=== PATIENT | male | born 1950 | race Caucasian/White ===

== ENCOUNTER 2017-01-12 14:51 | Outpatient (CLI) | payer MEDICARE, OTHER | END 2017-01-12 14:52 | disposition home or self-care (01) | DX: Z13.6 Encounter for screening for cardiovascular disorders (principal); I10 Essential (primary) hypertension ==

== ENCOUNTER 2017-08-27 11:37 | Outpatient (CLI) | payer MEDICARE, OTHER ==
--- NOTE | 2017-08-27 20:29 | Ultrasound Report ---
EXAM: BILATERAL LOWER EXTREMITY ARTERIAL DOPPLER ULTRASOUND EXAM DATE: 08/27/2017 01:21 PM. CLINICAL HISTORY: Neuropathy. COMPARISON: None. TECHNIQUE: Real-time sonographic vascular imaging was performed by the receiving lead, utilizing color-f low, Doppler flow, and spectral analysis. Multiple players club representative static images were saved for review . FINDINGS: RIGHT LEG: GENERATING STATION MECHANIC: PSV 140 cm/sec. Triphasic waveform. PSFA: PSV 124 cm/sec. Triphasic waveform. MSFA: PSV 108 cm/sec. Triphasic waveform. DSFA: PSV 180 cm/sec. Triphasic waveform. PFA: PSV 154 cm/sec. Triphasic waveform. POP: PSV 104 cm/sec. Triphasic waveform. MARINO: PSV 34 cm/sec. Biphasic waveform. MRI CT TECH: PSV 61 cm/sec. Triphasic waveform. PER: PSV 51 cm/sec. Biphasic waveform. DPA: PSV 73 cm/sec. Triphasic waveform. LEFT LEG: GENERATING STATION MECHANIC: PSV 155 cm/sec. Triphasic waveform. PSFA: PSV 98 cm/sec. Triphasic waveform. MSFA: PSV 67 cm/sec. Triphasic waveform. DSFA: PSV 112 cm/sec. Triphasic waveform. PFA: PSV 86 cm/sec. Triphasic waveform. POP: PSV 84 cm/sec. Triphasic waveform. MARINO: PSV 68 cm/sec. Triphasic waveform. MRI CT TECH: PSV 77 cm/sec. Triphasic waveform. PER: PSV 66 cm/sec. Biphasic waveform. DPA: PSV 77 cm/sec. Triphasic waveform. IMPRESSION: 1. There is scattered atheromatous calcification within the bilateral femoral arteries. 2. No evidence of occlusion or high-grade stenosis. [facility] Referring Provider Line: [phone] SITE ID: [id number]
== END 2017-08-27 11:38 | disposition home or self-care (01) ==
LOC: DI 11:37
PROVIDERS: ATTEND Internal Medicine
DX: I70.203 Unspecified atherosclerosis of native arteries of extremities, bilateral legs (principal)
CPT/HCPCS: 93925

== ENCOUNTER 2017-09-22 11:38 | Outpatient (CLI) | payer MEDICARE, OTHER ==
--- NOTE | 2017-09-22 20:34 | CT Report ---
DATE OF SERVICE: 09/22/2017 CT BRAIN WITHOUT CONTRAST: 09/22/2017 CLINICAL INDICATION: Neuropathy, pain in legs, toe numbness. TECHNIQUE: Axial CT images of the brain were obtained without intravenous contrast. No previous CT is available for comparison. In accordance with CT protocol optimization, one or more of the following dose reduction techniques w ere utilized for this exam: Automated exposure control, adjustment of mA and/or KV based on patient size , or use of iterative reconstructive technique. The ventricles and sulci demonstrate mild symmetric enlargement, compatible with atrophy. The basila r cisterns are patent. There is no evidence of hemorrhage, mass effect, or midline shift. The visuali zed orbital contents are unremarkable. There is left worse than right chronic maxillary sinus disease pr esent. IMPRESSION: Chronic sinus disease. Mild atrophy. TD: 09/22/2017 21:33
== END 2017-09-22 11:39 | disposition home or self-care (01) ==
LOC: DI 11:38
PROVIDERS: ATTEND Internal Medicine
DX: G90.09 Other idiopathic peripheral autonomic neuropathy (principal); G31.9 Degenerative disease of nervous system, unspecified; J32.9 Chronic sinusitis, unspecified
CPT/HCPCS: 70450

== ENCOUNTER 2017-10-16 14:21 | Outpatient (CLI) | payer MEDICARE, OTHER | END 2017-10-16 14:22 | disposition home or self-care (01) | LOC: LAB.R 14:21 | PROVIDERS: ATTEND Surgery | DX: N39.0 Urinary tract infection, site not specified (principal); R19.7 Diarrhea, unspecified | CPT/HCPCS: 81001; 82270; 83630; 87045; 87046; 87086; 87177; 87209; 87493 ==

== ENCOUNTER 2017-10-23 13:06 | Outpatient (CLI) | payer MEDICARE, OTHER ==
[2017-10-23] MEDS ORDERED: IOPAMIDOL-300 50 ML VIAL ONE (14:14)
[2017-10-23] MEDS ORDERED: IOPAMIDOL-300 100 ML VIAL ONE (14:14)
[2017-10-23] MEDS ORDERED: IOPAMIDOL-300 50 ML VIAL PO ONE (16:04)
[2017-10-23] MEDS ORDERED: IOPAMIDOL-300 100 ML VIAL IVP ONE (16:05)
--- NOTE | 2017-10-25 23:56 | CT Report ---
EXAM: CT ABDOMEN AND PELVIS EXAM DATE: 10/23/2017 04:00 PM. CLINICAL HISTORY: Patient has a history of Tita's pouch. 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 Rec ent urinary tract infections and leakage of liquid bowel contents into the urinary tract. COMPARISONS: 05/14/2015, 10/26/2014. TECHNIQUE: Routine helical CT imaging was performed through the abdomen and pelvis. IV contrast: 100 mL Isovue 300. Enteric contrast: Yes. Reconstructions: Coronal and sagittal. In accordance with CT protocol optimization, one or more of the following dose reduction techniques w ere utilized for this exam: automated exposure control, adjustment of mA and/or KV based on patient s ize, or use of iterative reconstructive technique. FINDINGS: Lung Bases: Emphysema. Liver: Moderately fatty. Stable atrophic left liver. No suspicious masses. Gallbladder/Bile Ducts: Cholelithiasis, otherwise unremarkable. Spleen: Unremarkable. Pancreas: Unremarkable. Adrenal Glands: Unremarkable. Kidneys: Solitary large left kidney, likely compensatorily hypertrophied. Tiny nonobstructive left re nal stone. No suspicious masses or hydronephrosis. Peritoneal Cavity/Bowel: Patient is status post partial colectomy and left lower quadrant colostomy f ormation. No bowel obstruction or inflammatory process seen. There is evidence of a patent fistula tr act between bowel and the left dome of the urinary bladder, axial images 59 through 61 and coronal im ages 30 through 30 where there appear to be tethered cluster of bowel loops involving the rectal pouc h, small bowel, and cecum. There is a passage of enteric contrast into the urinary bladder and rectal pouch. Pelvic Organs: Please see above for the enterovesicular fistula. There is a large 5 cm chronic right posterior bladder diverticulum. There is a new approximately 2 x 1 x 1 cm collection within the pros méndez gland on axial image 72. Vasculature: Chronic saccular aneurysm off the left aspect of the aorta on image 36 without significa nt change. At this level, the aorta measures 38 mm transverse and 20 mm AP. No acute vascular abnorma lity seen. Moderate atherosclerotic disease. Bones: No significant abnormality. Other: None. IMPRESSION: 1. 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 The small fistu la is from a tethered cluster of bowel loops which have fistulized together involving the cecum, holly cent small bowel, and rectal pouch. Evidence of administered enteric contrast within the urine of the bladder and within the rectal pouch, consistent with patent fistulas. 2. New approximately 2 x 1 x 1 cm collection within the prostate gland could be inflammatory/early ab scess. Correlation with clinical exam suggested. 3. Fatty liver. 4. Cholelithiasis. 5. Tiny nonobstructing left renal stone. Absent right Kidney. 6. Emphysema. 7. Chronic small saccular aneurysm off the lower abdominal aorta. [facility] Referring Provider Line: [phone] SITE ID: [id number]
== END 2017-10-23 13:07 | disposition home or self-care (01) ==
LOC: LAB 13:06 → DI 13:07
PROVIDERS: ATTEND Surgery
DX: N32.1 Vesicointestinal fistula (principal); N42.89 Other specified disorders of prostate; K76.0 Fatty (change of) liver, not elsewhere classified; N20.0 Calculus of kidney; J43.9 Emphysema, unspecified; I71.4 Abdominal aortic aneurysm, without rupture; Z90.5 Acquired absence of kidney
CPT/HCPCS: 36415; 74177; 82565; Q9967

== ENCOUNTER 2017-11-06 08:32 | Day surgery (SDC) | payer MEDICARE, OTHER ==
[2017-11-06] MEDS ORDERED: LACTATED RINGERS 1,000 ML IV ONE (08:39)
[2017-11-06] MEDS ORDERED: GLYCOPYRROLATE 1 MG/5 ML VIAL IVP ONE (09:50)
[2017-11-06] MEDS ORDERED: MIDAZOLAM 2 MG/2 ML VIAL IVP ONE (09:50)
[2017-11-06] MEDS ORDERED: PROPOFOL 200 MG/20 ML VIAL IVP ONE (09:50)
[2017-11-06] MEDS ORDERED: KETAMINE 500 MG/10 ML VIAL IVP ONE (09:50)
[2017-11-06 12:41] VITALS: BP 128/77
== END 2017-11-06 08:33 | disposition home or self-care (01) ==
LOC: SDS 08:32
PROVIDERS: ATTEND Surgery
PROC: 0DBE8ZX Excision of Large Intestine, Via Natural or Artificial Opening Endoscopic, Diagnostic (ICD-10-PCS; 2017-11-06)
PROC: 0DBM8ZX Excision of Descending Colon, Via Natural or Artificial Opening Endoscopic, Diagnostic (ICD-10-PCS; principal; 2017-11-06 09:45)
DX: D12.4 Benign neoplasm of descending colon (principal); R19.7 Diarrhea, unspecified
CPT/HCPCS: 45380; 45384; J7120

== ENCOUNTER 2017-12-14 10:26 | Outpatient (CLI) | payer MEDICARE, OTHER | END 2017-12-14 10:27 | disposition critical access hospital (66) | LOC: EMS 10:26 | PROVIDERS: ATTEND Surgery | DX: R53.1 Weakness (principal); R50.9 Fever, unspecified | CPT/HCPCS: A0425; A0427 ==

== ENCOUNTER 2017-12-14 10:48 | Inpatient (IN) | payer MEDICARE, OTHER ==
[2017-12-14] MEDS ORDERED: SODIUM CHLORIDE 0.9% 1,000 ML IV ONE ×2 (10:59→15:44)
[2017-12-14] MEDS ORDERED: ACETAMINOPHEN 325 MG TABLET PO STA (11:00)
--- NOTE | 2017-12-14 11:04 | ED Physician Documentation ---
History of Present Illness - Stated complaint Stated Complaint: WEAKNESS - Chief complaint Chief Complaint: Fever - Additonal information Additional information: hx from pt and EMS and [facility] 67 male hx HTN a fib recurrent UTI colostomy enterovesicular fistula dx 10/23/17 released from [facility] Thursday 3 days ago -had c diff dehydration lyte and RUIZ malnourished dc on oral vanco states his son called 911 today 2/2 fever and profound weakness EMS brought to [facility] pt denies [employer] CP AP no cough no abd pain states he is urinating he is shaking but states that is chronic Review of Systems Constitutional: reports: Fever, Chills Throat: denies: Sore throat Cardiac: denies: Chest pain / pressure Respiratory: denies: Dyspnea, Cough GI: reports: Diarrhea (has colostomy). denies: Abdominal Pain Skin: denies: Rash Neurologic: reports: Generalized weakness Immunocompromised: denies: Immunocompromised PD PAST MEDICAL HISTORY - Past Medical History Cardiovascular: Hypertension, Atrial fibrillation Respiratory: None Neuro: None Endocrine/Autoimmune: None GI: C.difficile, Chronic diarrhea, Diverticulitis, Crohn's disease, Other : Benign prostate hypertrophy, Kidney stones, Other HEENT: Other Psych: Depression, Anxiety Musculoskeletal: Osteoarthritis, Gout, Chronic back pain Derm: None - Past Surgical History Past Surgical History: Yes General: Bowel surgery, Colonoscopy, Other Ortho: Other - Present Medications Home Medications: Ambulatory Orders Medication Instructions Recorded Confirmed Felodipine [Felodipine ER] 10 mg PO DAILY 10/25/14 12/14/17 Metoprolol Succinate [Toprol Xl] 50 mg PO DAILY 04/12/15 12/14/17 Amiodarone HCl [Amiodarone HCl] 200 mg PO DAILY 12/14/17 12/14/17 Losartan Potassium [Losartan 50 mg PO DAILY 12/14/17 12/14/17 Potassium] Vancomycin HCl [Vancomycin HCl] 125 mg PO QID 12/14/17 12/14/17 - Allergies Allergies/Adverse Reactions: Allergies Allergy/AdvReac Type Severity Reaction Status Date / Time erythromycin base Allergy Intermediate Rash Verified 12/14/17 10:56 - Social History Does the pt smoke?: Yes Smoking Status: Current every day smoker Does the pt drink ETOH?: Yes Does the pt have substance abuse?: No PD ED PE NORMAL - Vitals Vital signs reviewed: Yes - Neck Neck: Supple, no meningeal sign - Cardiac Cardiac: RRR - Respiratory Respiratory: No respiratory distress, Clear bilaterally - Abdomen Abdomen: Soft, Non tender, Other (prior surgical scars, L colostomy, soft, NT) - Extremities Extremities: No deformity - Neuro Neuro: Alert and oriented X 3 Results - Vitals Vitals: Vital Signs - 24 hr 12/14/17 12/14/17 12/14/17 10:51 11:04 13:35 Temperature 38.3 C H Heart Rate 102 H 92 96 Respiratory 20 18 18 Rate Blood Pressure 216/150 H 120/59 L 125/63 O2 Saturation 97 97 98 12/14/17 12/14/17 12/14/17 14:00 15:00 16:06 Temperature Heart Rate 88 87 88 Respiratory 16 16 16 Rate Blood Pressure 125/60 123/61 119/59 L O2 Saturation 96 97 97 Oxygen O2 Source [With Activity] Room air O2 Source Room air - Labs Labs: Laboratory Tests 12/14/17 12/14/17 12/14/17 11:10 11:10 11:10 WBC 12.2 H RBC 3.79 L Hgb 13.3 L Hct 39.9 L MCV 105.4 H MCH 35.1 H MCHC 33.3 RDW 13.0 Plt Count 146 MPV 7.3 L Neut # 10.7 H Lymph # 0.3 L Campbell # 1.2 H Eos # 0.0 Baso # 0.0 Absolute Nucleated RBC 0.01 Nucleated RBC % 0.0 Sodium 132 L Potassium 4.3 Chloride 110 Carbon Dioxide 15 L Anion Gap 7.0 BUN 24 H Creatinine 1.2 Estimated GFR (MDRD) 60 L Glucose 137 H Lactic Acid 1.8 Calcium 9.4 Total Bilirubin 0.8 AST 17 ALT 12 Alkaline Phosphatase 90 Total Protein 7.1 Albumin 3.2 Globulin 3.9 Albumin/Globulin Ratio 0.8 L Lipase 22 Urine Color Urine Clarity Urine pH Ur Specific [place] Urine Protein Urine Glucose (UA) Urine Ketones Urine Occult Blood Urine Nitrite Urine Bilirubin Urine Urobilinogen Ur Leukocyte Esterase Urine RBC Urine WBC Ur Squamous Epith Cells Urine Bacteria Ur Microscopic Review Urine Culture Comments 12/14/17 14:45 WBC RBC Hgb Hct MCV MCH MCHC RDW Plt Count MPV Neut # Lymph # Campbell # Eos # Baso # Absolute Nucleated RBC Nucleated RBC % Sodium Potassium Chloride Carbon Dioxide Anion Gap BUN Creatinine Estimated GFR (MDRD) Glucose Lactic Acid Calcium Total Bilirubin AST ALT Alkaline Phosphatase Total Protein Albumin Globulin Albumin/Globulin Ratio Lipase Urine Color YELLOW Urine Clarity TURBID Urine pH 6.0 Ur Specific [place] 1.010 Urine Protein TRACE Urine Glucose (UA) NEGATIVE Urine Ketones NEGATIVE Urine Occult Blood MODERATE H Urine Nitrite NEGATIVE Urine Bilirubin SMALL H Urine Urobilinogen 0.2 (NORMAL) Ur Leukocyte Esterase SMALL H Urine RBC 11-25 H Urine WBC 6-10 H Ur Squamous Epith Cells FEW Squamous Urine Bacteria Many H Ur Microscopic Review INDICATED Urine Culture Comments INDICATED PD MEDICAL DECISION MAKING - ED course ED course: received records from [facility] pt with hx HTN a fib on amiodarone, recurrent UTI and enterovesicular fistula dx by CT 10/23/17was admitted for acute on chronic diarrhea, acute c diff, failure to thrive, malnutrition, lyte imbalances, RUIZ 2/2 GI losses) EtOH withdrawal, chronic stable enterovesicular fistula (surgical consult not pursed last week 2/2 malnutrition and known active C diff) plan was to dc to SNF, perhaps TPN, pt got better was ambulatory, dc on toprol XL 50 mg q24h plendil 10 mg q 24 hr micradis 80 mg q 244hr losartan 50 mg qpm apap vanco 125mg PO qid valium 5 mg q6h PRN vicodin 7.5/325 was dced now he is worse dehydrated again and now UTI with fever 2/2 fistula - can tx with ab but will worsen the c diff and unlikely to clear the UTI f there is a fistula will admit -as pt is not a candidate for surgery by urology at this time feel could be admitted to [facility] will discuss ab with admitting doc spoke to hospitalist at 1625 late in ED stay after seen by hospitalist son expressed interest in transferring to a [address] [place] [address] Jaden - I went to speak to him and advised i could try to accommodate that - asked why and he was hoping to see a diff urologist - I explained that if the previous urologist felt he was to weakned and malnourished and that it was not safe to operate on his fistula while actively suffering from c -diff, that it was probably not safe - he is concerned pt will never get better while he continues to have the fistula (gets UTIs from the fistula, txed with ab, which cause c diff etc) - after I spoke to pt and family they decided to stay at [facility] after all Departure - Departure Disposition: [facility] DC/Xfer Clinical Impression: C. difficile colitis, Dehydration, Weakness UTI (urinary tract infection) Qualifiers: Urinary tract infection type: site unspecified Hematuria presence: with hematuria Qualified Code(s): N39.0 - Urinary tract infection, site not specified Condition: Fair Discharge Date/Time: 12/14/17 18:21
[2017-12-14 11:22] LABS: BASOPHILS % (AUTO) 0.3 %; HGB - HEMOGLOBIN 13.3 g/dL (14.0-18.0); LYMPHOCYTES # (AUTO) 0.3 10^3/uL (1.5-3.5); LYMPHOCYTES % (AUTO) 2.1 %; MEAN CORPUSCULAR HEMOGLOBIN 35.1 pg (27.0-31.0); MEAN CORPUSCULAR HGB CONC 33.3 g/dL (32.0-36.0); MEAN CORPUSCULAR VOLUME 105.4 fL (80.0-94.0); MEAN PLATELET VOLUME 7.3 fL (7.4-11.4); MONOCYTES # (AUTO) 1.2 10^3/uL (0.0-1.0); MONOCYTES % (AUTO) 9.6 %; NEUTROPHILS # (AUTO) 10.7 10^3/uL (1.5-6.6); PLT - PLATELET COUNT 146 10^3/uL (130-450); RED BLOOD COUNT 3.79 10^6/uL (4.70-6.10); WHITE BLOOD COUNT 12.2 x10^3/uL (4.8-10.8)
[2017-12-14 11:33] LABS: ALBUMIN 3.2 g/dL (3.2-5.5); ALBUMIN/GLOBULIN RATIO 0.8 (1.0-2.2); BILIRUBIN,TOTAL 0.8 mg/dL (0.2-1.0); CALCIUM 9.4 mg/dL (8.5-10.3); CREATININE 1.2 mg/dL (0.6-1.2); TOTAL PROTEIN 7.1 g/dL (6.7-8.2)
[2017-12-14 14:52] LABS: GLUCOSE, URINE (UA) NEGATIVE (NEGATIVE); KETONES,URINE (UA) NEGATIVE (NEGATIVE); LEUKOCYTE ESTERASE, URINE SMALL (NEGATIVE); NITRITE,URINE NEGATIVE (NEGATIVE); OCCULT BLOOD,URINE MODERATE (NEGATIVE); PROTEIN,URINE TRACE mg/dL (NEGATIVE); UROBILINOGEN,URINE 0.2 (NORMAL) E.U./dL (NORMAL)
[2017-12-14 14:53] LABS: CLARITY,URINE TURBID (CLEAR)
[2017-12-14 14:57] LABS: BILIRUBIN,URINE SMALL (NEGATIVE); ICTOTEST,URINE POSITIVE
[2017-12-14 15:04] LABS: SQUAMOUS EPITHELIAL CELL,UR FEW Squamous (<= Few)
[2017-12-14 15:05] LABS: BACTERIA,URINE Many /HPF (None Seen)
[2017-12-14] MEDS ORDERED: D5.45NS W/20 MEQ KCL 1,000 ML IV STA (15:44)
[2017-12-14] MEDS ORDERED: VANCOMYCIN 125 MG CAPSULE PO STA (15:44)
[2017-12-14] MEDS ORDERED: ACETAMINOPHEN 325 MG TABLET PO PRN (17:20)
[2017-12-14] MEDS ORDERED: ZOLPIDEM 5 MG TABLET PO PRN (17:20)
[2017-12-14] MEDS ORDERED: ONDANSETRON 4 MG/2 ML VIAL IVP PRN (17:20)
[2017-12-14] MEDS ORDERED: D5.45NS W/20 MEQ KCL 1,000 ML IV SCH (18:00)
[2017-12-14] MEDS ORDERED: VANCOMYCIN 125 MG CAPSULE PO SCH (18:00)
[2017-12-14] MEDS ORDERED: D5NS W/20 MEQ KCL 1,000 ML IV SCH (18:00)
--- NOTE | 2017-12-14 18:12 | HISTORY & PHYSICAL EXAMINATION ---
Chief Complaint - Chief Complaint Chief Complaint: fever and profound weakness History of Present Illness - Admitted From Admitted From:: ER - History Obtained From History obtained from: pt and pt's family - History of Present Illness HPI Comment/Other: Mr. Eckert is 67-year-old male with a PMH significant for HTN, recurrent UTI, Afib in Amiodarone, C.Diff colitis on PO Vancomycin, colostomy, enterovesicular fistula, who present ER complaints of fever and profound weakness. Pt was discharged from [facility] three days ago with PO Vancomycin for C.Diff colitis. In 2014, pt underwent a colonic resection and descending colostomy ( Tita) for perforated diverticulitis. Three months later pt developed SBO and underwent Laparoscopy which revealed small bowel vulvous. CT scan on 2017 shows left dome enterovesical fistula, biopsies showed negative for Crohn' s disease. Pt has seen Dr. Mims as out-pt and planned to attempt surgery for the fistula. The surgeon was unable to proceed with surgery due to pt's nutritional decline at that time. Pt's son call 911 today for pt's fever and profound weakness. Pt state he can walk yesterday but he can not do anything today. Pt report he did have stool passed through his colostomy bag today and felt some abdominal pain as well. Pt denies chest pain, shortness of breath, headache. Lab test today shows, WBC 12.2, Na 132, BUN 24, Creatinine 1.2, and UA reveals UTI. History - Past Medical History Cardiovascular: reports: Hypertension, Atrial fibrillation Respiratory: reports: None Neuro: reports: None Endocrine/Autoimmune: reports: None GI: reports: C.difficile, Chronic diarrhea, Diverticulitis, Crohn's disease, Other : reports: Benign prostate hypertrophy, Kidney stones, Other HEENT: reports: Other Psych: reports: Depression, Anxiety Musculoskeletal: reports: Osteoarthritis, Gout, Chronic back pain Derm: reports: None MRSA Hx?: No - Past Surgical History General: reports: Bowel surgery, Colonoscopy, Other Ortho: reports: Other - Family & Social History Family History: Mother: (pt is adopted. He did not know his parents at all, pt also does not know anything about his siblings), Father: Family History Comment/Other: pt with his is living at [place]. Pt had one son Living arrangement: At home Living Situation: With family - Substance History Use: Uses substance without health or social issues: Alcohol - POLST POLST Status: DNR Meds/Allgy - Home Medications Home Medications: Ambulatory Orders Medication Instructions Recorded Confirmed Felodipine [Felodipine ER] 10 mg PO DAILY 10/25/14 12/14/17 Metoprolol Succinate [Toprol Xl] 50 mg PO DAILY 04/12/15 12/14/17 Amiodarone HCl [Amiodarone HCl] 200 mg PO DAILY 12/14/17 12/14/17 Losartan Potassium [Losartan 50 mg PO DAILY 12/14/17 12/14/17 Potassium] Vancomycin HCl [Vancomycin HCl] 125 mg PO QID 12/14/17 12/14/17 - Allergies Allergies/Adverse Reactions: Allergies Allergy/AdvReac Type Severity Reaction Status Date / Time erythromycin base Allergy Intermediate Rash Verified 12/14/17 10:56 Review of Systems - Constitutional Constitutional: reports: Fatigue, Fever, Chills, Weakness, Poor appetite, Weight loss. denies: Malaise, Diaphoresis, Night sweats, Weight gain - Eyes Eyes: denies: Pain, Irritation, Amaurosis, Blurred vision, Spots in vision, Field loss, Vision loss, Dipolpia - Ears, Nose & Throat Ears, Nose & Throat: denies: Ear pain, Hearing loss, Hearing aids, Tinnitus, Vertigo, Nasal pain, Nasal discharge, Nosebleeds, Nasal congestion, Sore throat , Mouth lesions, Bleeding gums - Cardiovascular Cariovascular: denies: Irregular heart rate, Palpitations, Chest pain, Edema, Lightheadedness, Syncope, Exertional dyspnea, Decr. exercise tolerance - Respiratory Respiratory: reports: Cough, Sputum production. denies: Wheezing, Snoring, Hemoptysis, Orthopnea, SOB at rest, SOB with exertion - Gastrointestinal Gastrointestinal: reports: Abdominal pain, Diarrhea, Poor appetite. denies: Constipation, Change in bowel habits, Rectal bleeding, Black stools, Bloody stools, Nausea, Vomiting, Bile emesis, Juan blood emesis, Coffee grounds emesis - Genitourinary Genitourinary: reports: Frequency, Urgency. denies: Dysuria, Hematuria, Incontinence, Flank pain - Musculoskeletal Musculoskeletal: denies: Muscle pain, Back pain, Muscle aches, Stiffness, Limited range of motion, Muscle weakness, Gout, Joint pain - Integumentary Integumentary: denies: Rash, Pruritis, Lesions, Dryness, Pigment changes - Neurological Neurological: reports: General weakness. denies: Focal weakness, Headache, Dizziness, Numbness, Pre-existing deficit, Abnormal gait, Seizures, Incoordination, Slurred speech - Psychiatric Psychiatric: denies: Depression, Anxiety, Suicidal, Delusions, Hallucinations, Homicidal - Endocrine Endocrine: denies: Polyuria, Polydypsia, Polyphagia, Intolerance to cold, Intolerance to heat - Hematologic/Lymphatic Hematologic/Lymphatic: reports: Recurrent infections. denies: Anemia, Lymphadenopathy, Bleeding tendencies Exam - Vital Signs Reviewed Vital Signs: Yes - Physical Exam General Appearance: positive: Alert, Mild distress. negative: Lethargic Eyes Bilateral: positive: Normal inspection, PERRL, No lid inflammation, Conjunctivae nml ENT: positive: ENT inspection nml, Pharynx nml, No signs of dehydration. negative: Purulent nasal drainage, Pharyngeal erythema, Oral lesions Neck: positive: Nml inspection, Thyroid nml, No JVD, Trachea midline. negative : Thyromegaly, Lymphadenopathy (R), Lymphadenopathy (L), Stiff neck, Carotid bruit, Swelling/bruising, Tracheal deviation Respiratory: positive: Chest non-tender, No respiratory distress, Other. negative: Wheezes, Rales Cardiovascular: positive: Regular rate & rhythm, No murmur, No gallop. negative : Irregularly irregular, Extrasystoles, Tachycardia, Bradycardia, JVD present, Systolic murmur, Diastolic murmur Peripheral Pulses: positive: 2+ Abdomen: positive: Non-tender, No organomegaly, Nml bowel sounds, No distention. negative: Tenderness, Guarding, Rebound Back: positive: Nml inspection. negative: CVA tenderness (R), CVA tenderness (L ) Skin: positive: Color nml, No rash, Warm, Dry. negative: Cyanosis, Diaphoresis , Pallor Extremities: positive: Non-tender, Full ROM. negative: Calf tenderness, Joint swelling, Christa's sign/cords Neurologic/Psychiatric: positive: Oriented x3, Sensation nml, Weakness. negative: Sensory loss, Facial droop, Slurred/abnml speech, Depressed mood/ affect Conclusion/Plan - Problem List (1) Generalized weakness Conclusion/Plan: pt's BMI19.3, pt state he continue loss of weigh, continue chronic diarrhea, loss of appetite consult activity therapy specialist consider TPN consider PT/OT (2) Fever Conclusion/Plan: pt report he had fever, lower degree of fever at ER, Tem 38.3 degree Blood culture, will follow up UTI positive order CXR, since pt had cough and congestion. treat with Zosyn now IVF, D5 NS hemadynamically stable now, watch sepsis continue lab, vital monitor (3) UTI (urinary tract infection) Conclusion/Plan: pt is still remaining enterovesical fistula, pt is high risk to have UTI until operation done. treated with zosyn now follow up UA culture and sensitivity study Qualifiers: Urinary tract infection type: site unspecified Hematuria presence: with hematuria Qualified Code(s): N39.0 - Urinary tract infection, site not specified; R31.9 - Hematuria, unspecified; R31.9 - Hematuria, unspecified (4) C. difficile colitis Conclusion/Plan: pt with chronic diarrhea, and D/C three days ago with PO vancomycin for C.Diff colitis which diagnosis at [facility] continue PO vancomycin test C.Diff, and will follow up (5) Malnutrition Conclusion/Plan: malnourished, consult with activity therapy specialist encourage pt gain appetite consider TPN (6) Enterovesical fistula Conclusion/Plan: pt remain this medical problem, is not operated by his surgeon yet. pt complain some discomforted/pain at abdomen order CT of abdomen, follow up follow up pt's surgeon as out-pt (7) Atrial fibrillation Conclusion/Plan: stable now, resume home meds Amiodaronl and Toprol XL tele monitor vital monitor (8) Hypertension Conclusion/Plan: stable, resume home meds Toprol XL, (10) DVT prophylaxis Conclusion/Plan: SCD and Lovenox (11) Do not intubate, cardiopulmonary resuscitation (CPR)-only code status Conclusion/Plan: pt clearly request DNR - Lab Results Fish Bones: 12/14/17 11:10 12/14/17 11:10 Core Measures - Anticipated LOS I expect patient to be DC'd or transferred within 96 hours.: Yes - DVT/VTE - Prophylaxis VTE/DVT Device ordered at admit?: Yes VTE/DVT Prophylaxis med ordered at admit?: Yes
[2017-12-14] MEDS: D5NS W/20 MEQ KCL 1,000 ML IV SCH (19:06)
[2017-12-14] MEDS: PIPERACILLIN/TAZOBACTAM 3.375 GM in SODIUM CHLORIDE 0.9% MINIBAG 100 ML IV SCH (19:16)
[2017-12-14] MEDS ORDERED: IOPAMIDOL-300 100 ML VIAL ONE (19:40)
[2017-12-14] MEDS: SODIUM CHLORIDE FLUSH 0.9% 10 ML SYRINGE IVP PRN (20:29)
[2017-12-14] MEDS: VANCOMYCIN 125 MG CAPSULE PO SCH (20:35)
[2017-12-14] MEDS: ACETAMINOPHEN 325 MG TABLET PO PRN (21:59)
--- NOTE | 2017-12-14 23:23 | XRAY Report ---
EXAM: CHEST RADIOGRAPHY EXAM DATE: 12/14/2017 07:51 PM. CLINICAL HISTORY: Cough, sputum. COMPARISON: 05/15/2015. TECHNIQUE: 1 view. FINDINGS: Lungs/Pleura: Lungs are well expanded. Small effusions are better seen on accompanying CT. No evidenc e of focal infiltrate. No pneumothorax. Mediastinum: Within exam limitations, the cardiomediastinal contour is normal. Other: None. IMPRESSION: No acute intrathoracic plain film abnormality. [facility] Referring Provider Line: [phone] SITE ID: [id number]
--- NOTE | 2017-12-14 23:23 | CT Preliminary Report ---
Exam: CT ABDOMEN/PELVIS W/ IMPRESSION: 1. There are small bilateral pleural effusions. 2. There is cholelithiasis. 3. There is moderate left perinephric stranding. There is mild urothelial enhancement. Findings could represent infection. The left kidney demonstrates no evidence of hydronephrosis or stone. 4. Patient has undergone prior abdominal surgeries. There is a mixed density lesion within the sigmoi d colon. The measures 2.0 x 2.8 cm (image 69 series 3). Relative stability of this finding suggests h eterogeneous mass rather than stool. 5. There is a stable soft tissue density measuring 3.8 x 4.7 cm at the posterior right margin of the urinary bladder. 6. There is a stable 1.6 x 1.9 cm soft tissue density at the left lateral margin of the lower aorta. This likely represents saccular aneurysm. 7. Thick-walled urinary bladder. Previously characterized fistulous communication between the dome of the urinary bladder and adjacent bowel is stable in CT appearance. [facility] SITE ID: [id number]
[2017-12-15] MEDS: PIPERACILLIN/TAZOBACTAM 3.375 GM in SODIUM CHLORIDE 0.9% MINIBAG 100 ML IV SCH ×4 (00:22→18:11)
[2017-12-15] MEDS: SODIUM CHLORIDE FLUSH 0.9% 10 ML SYRINGE IVP SCH ×3 (00:23→18:07)
--- NOTE | 2017-12-15 01:53 | CT Report ---
EXAM: CT ABDOMEN AND PELVIS EXAM DATE: 12/14/2017 08:15 PM. CLINICAL HISTORY: Abdominal pain. COMPARISONS: 10/23/2017. TECHNIQUE: Routine helical CT imaging was performed through the abdomen and pelvis. IV contrast: 100 mL Isovue 300. Enteric contrast: No. Reconstructions: Coronal and sagittal. In accordance with CT protocol optimization, one or more of the following dose reduction techniques w ere utilized for this exam: automated exposure control, adjustment of mA and/or KV based on patient s ize, or use of iterative reconstructive technique. FINDINGS: Lung Bases: There are small bilateral pleural effusions. There is mild bibasilar atelectasis. Liver: Normal. No masses. Gallbladder/Bile Ducts: There is cholelithiasis. Spleen: No acute abnormalities. Pancreas: There are calcifications in the pancreatic tail region. Adrenal Glands: Normal. Kidneys: The right kidney is absent. There is left perinephric stranding. There is mild left pelviect asis. No stones are seen. Peritoneal Cavity/Bowel: There is moderate distention of the stomach. Patient has undergone prior abd ominal surgeries. There is a left lower quadrant ostomy. No clearly dilated or thick-walled bowel is seen. There is a heterogeneous masslike density within the sigmoid colon lumen. No intraperitoneal fr ee air. Pelvic Organs: There is soft tissue density at the posterior margin of the urinary bladder. The urina ry bladder is decompressed. A bladder catheter is in place. No enlarged pelvic lymph nodes. Vasculature: There are atheromatous calcifications of the aorta and branch vessels. No acute vascular abnormalities are seen. Bones: No significant abnormality. Other: None. IMPRESSION: 1. There are small bilateral pleural effusions. 2. There is cholelithiasis. 3. There is moderate left perinephric stranding. There is mild urothelial enhancement. Findings could represent infection. The left kidney demonstrates no evidence of hydronephrosis or stone. 4. Patient has undergone prior abdominal surgeries. There is a stable mixed density lesion within the sigmoid colon. The lesion measures 2.0 x 2.8 cm (image 69 series 3). Relative stability of this find ing suggests heterogeneous mass rather than stool. 5. There is a stable soft tissue density measuring 3.8 x 4.7 cm at the posterior right margin of the urinary bladder. 6. There is a stable 1.6 x 1.9 cm soft tissue density at the left lateral margin of the lower aorta. 7. Thick-walled urinary bladder. Previously characterized fistulous communication between the dome of the urinary bladder and adjacent bowel is stable in CT appearance. [facility] Referring Provider Line: [phone] SITE ID: [id number]
[2017-12-15 05:12] LABS: BASOPHILS % (AUTO) 0.2 %; EOSINOPHILS % (AUTO) 0.1 %; HGB - HEMOGLOBIN 11.6 g/dL (14.0-18.0); LYMPHOCYTES # (AUTO) 0.3 10^3/uL (1.5-3.5); LYMPHOCYTES % (AUTO) 2.4 %; MEAN CORPUSCULAR HEMOGLOBIN 34.6 pg (27.0-31.0); MEAN CORPUSCULAR HGB CONC 32.9 g/dL (32.0-36.0); MEAN CORPUSCULAR VOLUME 105.1 fL (80.0-94.0); MEAN PLATELET VOLUME 7.5 fL (7.4-11.4); MONOCYTES # (AUTO) 0.9 10^3/uL (0.0-1.0); MONOCYTES % (AUTO) 8.4 %; NEUTROPHILS % (AUTO) 88.9 %; PLT - PLATELET COUNT 112 10^3/uL (130-450); RED BLOOD COUNT 3.36 10^6/uL (4.70-6.10); WHITE BLOOD COUNT 11.2 x10^3/uL (4.8-10.8)
[2017-12-15 05:20] LABS: ALBUMIN 2.4 g/dL (3.2-5.5); ALBUMIN/GLOBULIN RATIO 0.8 (1.0-2.2); BILIRUBIN,TOTAL 0.5 mg/dL (0.2-1.0); CALCIUM 8.7 mg/dL (8.5-10.3); CREATININE 0.9 mg/dL (0.6-1.2); MAGNESIUM 1.2 mg/dL (1.7-2.8); TOTAL PROTEIN 5.6 g/dL (6.7-8.2)
[2017-12-15] MEDS: D5NS W/20 MEQ KCL 1,000 ML IV SCH ×2 (06:43→18:06)
[2017-12-15] MEDS: POLYETHYLENE GLYCOL 3350 17 GM PACKET PO SCH (08:42)
[2017-12-15] MEDS: FAMOTIDINE 20 MG TABLET PO SCH (08:46)
[2017-12-15] MEDS: VANCOMYCIN 125 MG CAPSULE PO SCH ×4 (08:46→22:14)
[2017-12-15] MEDS: AMIODARONE 200 MG TABLET PO SCH (08:46)
[2017-12-15] MEDS: METOPROLOL SUCCINATE 50 MG TABLET PO SCH (08:46)
[2017-12-15] MEDS ORDERED: LOSARTAN 50 MG TABLET PO SCH (09:00)
[2017-12-15] MEDS ORDERED: cefTRIAXone 1 GM VIAL IVP SCH (09:00)
[2017-12-15] MEDS ORDERED: FELODIPINE ER 2.5 MG TABLET PO SCH (09:00)
[2017-12-15] MEDS: ENOXAPARIN 40 MG/0.4 ML SYRINGE SUBQ SCH (09:10)
[2017-12-15 11:07] LABS: INR 1.7 (0.8-1.2); PT - PROTHROMBIN TIME 18.3 secs (9.9-12.6)
[2017-12-15] MEDS: ACETAMINOPHEN 325 MG TABLET PO PRN ×2 (11:49→22:13)
[2017-12-15] MEDS ORDERED: MAGNESIUM SULFATE 1 GM in SODIUM CHLORIDE 0.9% 50 ML IV ONE (15:44)
[2017-12-15] MEDS ORDERED: POTASSIUM PHOSPHATE 15 MMOL in SODIUM CHLORIDE 0.9% 250 ML IV ONE (15:45)
--- NOTE | 2017-12-15 17:19 | XRAY Report ---
PICC LINE PLACEMENT: 12/15/2017 COMPARISON: Earlier today. FINDINGS/IMPRESSION: THE RIGHT PICC LINE HAS BEEN REMOVED. THERE IS A NEW LEFT -SIDED PICC LINE ENDING IN THE RIGHT ATRIUM. SUGGEST PULLING BACK BY 2 CM. RESULTS CONVEYED TO ANESTHESIA. TD: 12/15/2017 17:18 MTDD
--- NOTE | 2017-12-15 18:19 | PROVIDER PROGRESS NOTE ---
Subjective - Prog Note Date Prog Note Date: 12/15/17 Prog Note Time: 18:17 - Subjective Subjective: he's so weak he can barely lift his head to drink from a juice cup. shakes w effort. low weak voice. denies chest pain, had mild nonproductive weak cough denies abd pain just aches in pelvis joints without pain Current Medications - Current Medications Current Medications: Active Medications Acetaminophen (Tylenol) 650 mg PO Q4HR PRN PRN Reason: Pain 1 to 4 Last Admin: 12/15/17 11:49 Dose: 650 mg Amiodarone HCl (Pacerone) 200 mg PO DAILY [facility] Last Admin: 12/15/17 08:46 Dose: 200 mg Enoxaparin Sodium (Lovenox) 30 mg SUBQ DAILY [facility] Last Admin: 12/15/17 09:10 Dose: Not Given Famotidine (Pepcid) 20 mg PO DAILY [facility] Last Admin: 12/15/17 08:46 Dose: 20 mg Piperacillin Sod/Tazobactam (Sod 3.375 gm/ Sodium Chloride) 100 mls @ 200 mls/ hr IV Q6H [facility] Last Admin: 12/15/17 18:11 Dose: 200 mls/hr Potassium Chloride/Dextrose/Sod Cl () 1,000 mls @ 100 mls/hr IV .Q10H [facility] Last Admin: 12/15/17 18:06 Dose: 100 mls/hr Multivitamins 10 ml/ Amino Ac/ (Electrol/Dextrose/Calcium) 2,010 mls @ 40 mls/ hr IV Q24H [facility] PRN Reason: Protocol Fat Emulsion Intravenous (Intralipid 20%) 250 mls @ 21 mls/hr IV Q24H [facility] Metoprolol Succinate (Toprol Xl) 50 mg PO DAILY [facility] Last Admin: 12/15/17 08:46 Dose: 50 mg Ondansetron HCl (Zofran Inj) 4 mg IVP Q6HR PRN PRN Reason: Nausea / Vomiting Polyethylene Glycol (Miralax) 17 gm PO DAILY [facility] Last Admin: 12/15/17 08:42 Dose: Not Given Sodium Chloride (Normal Saline Flush 0.9%) 10 ml IVP PRN PRN PRN Reason: NEEDED PER PROVIDER ORDERS Last Admin: 12/14/17 20:29 Dose: 10 ml Sodium Chloride (Normal Saline Flush 0.9%) 10 ml IVP 0100,0900,1700 [facility] Last Admin: 12/15/17 18:07 Dose: Not Given Vancomycin HCl (Vancocin) 125 mg PO QID [facility] Last Admin: 12/15/17 18:15 Dose: 125 mg Zolpidem Tartrate (Ambien) 5 mg PO QPM PRN PRN Reason: Insomnia Felodipine [Felodipine ER] 10 mg PO DAILY 10/25/14 Metoprolol Succinate [Toprol Xl] 50 mg PO DAILY 04/12/15 Amiodarone HCl [Amiodarone HCl] 200 mg PO DAILY 12/14/17 Losartan Potassium [Losartan Potassium] 50 mg PO DAILY 12/14/17 Vancomycin HCl [Vancomycin HCl] 125 mg PO QID 12/14/17 Objective - Vital Signs/Intake & Output Reviewed Vital Signs: Yes Vital Signs: Vital Signs x48h Temp Pulse Resp BP Pulse Ox 12/15/17 15:50 36.4 C L 106 H 24 129/61 95 12/15/17 12:36 37.5 C 12/15/17 11:41 37.7 C H 120 H 20 153/78 H 94 Intake & Output: Intake & Output 12/12/17 12/13/17 12/14/17 12/15/17 23:59 23:59 23:59 23:59 Intake Total 055.499 9585.666 Output Total 2150 1050 Balance -6227.311 3353.666 - Objective General Appearance: positive: No acute distress, Other (severely cachectic middle aged white male who looks older than stated age) Eyes Bilateral: positive: PERRL ENT: positive: Other (poor dentition, gingivitis) Neck: positive: No JVD. negative: Stiff neck, Carotid bruit Respiratory: positive: Chest non-tender. negative: Wheezes, Rales, Rhonchi Cardiovascular: positive: Regular rate & rhythm, Systolic murmur. negative: Gallop/S4, Friction rub Abdomen: positive: Non-tender, No organomegaly, Nml bowel sounds, No distention Skin: positive: Warm, Dry, Other (flaking leg skin) Extremities: positive: Pedal edema (but nonpitting), Other (severely diminished diffuse muscle mass of limbs, skeletal in appearance) Neurologic/Psychiatric: positive: Oriented x3, CN's nml (2-12). negative: Motor nml (diffusely weak) - Lab Results Fish Bones: 12/15/17 05:01 12/15/17 05:01 Other Labs: Lab Results x24hrs 12/15/17 12/15/17 12/15/17 Range/Units 10:53 05:01 05:01 WBC 11.2 H (4.8-10.8) x10^3/uL RBC 3.36 L (4.70-6.10) 10^6/uL Hgb 11.6 L (14.0-18.0) g/dL Hct 35.3 L (42.0-52.0) % MCV 105.1 H (80.0-94.0) fL MCH 34.6 H (27.0-31.0) pg MCHC 32.9 (32.0-36.0) g/dL RDW 13.0 (12.0-15.0) % Plt Count 112 L (130-450) 10^3/uL MPV 7.5 (7.4-11.4) fL Neut # 10.0 H (1.5-6.6) 10^3/uL Lymph # 0.3 L (1.5-3.5) 10^3/uL Chaves # 0.9 (0.0-1.0) 10^3/uL Eos # 0.0 (0.0-0.7) 10^3/uL Baso # 0.0 (0.0-0.1) 10^3/uL Absolute Nucleated RBC 0.01 x10^3/uL Nucleated RBC % 0.1 /100WBC PT 18.3 H (9.9-12.6) secs INR 1.7 H (0.8-1.2) Sodium 137 (135-145) mmol/L Potassium 3.7 (3.5-5.0) mmol/L Chloride 115 H (101-111) mmol/L Carbon Dioxide 14 L (21-32) mmol/L Anion Gap 8.0 (6-13) BUN 13 (6-20) mg/dL Creatinine 0.9 (0.6-1.2) mg/dL Estimated GFR (MDRD) 84 L (>89) Glucose 165 H (70-100) mg/dL Calcium 8.7 (8.5-10.3) mg/dL Magnesium 1.2 L (1.7-2.8) mg/dL Total Bilirubin 0.5 (0.2-1.0) mg/dL AST 15 (10-42) IU/L ALT 10 (10-60) IU/L Alkaline Phosphatase 72 (42-121) IU/L Total Protein 5.6 L (6.7-8.2) g/dL Albumin 2.4 L (3.2-5.5) g/dL Globulin 3.2 (2.1-4.2) g/dL Albumin/Globulin Ratio 0.8 L (1.0-2.2) Assessment/Plan - Problem List (1) Gram-negative bacteremia Impression: see on 3/4 blood cultures. Source is either fistula or UTI. On Zosyn Day #2. await final sensitivities before changing abx. (2) Generalized weakness Impression: most likely from severely being malnourished , bacteremic and w chronic fistula plus C dif colitis. pt's BMI 19.3 consult catering cook TPN started. PT/OT ordered but willl start tomorrow, he's too weak today. (3) Fever Conclusion/Plan: pt report he had fever, lower degree of fever at ER, Tem 38.3 degree Positive blood cultures. UTI positive and awaitng culture results. CXR was done since pt had cough and congestion. there was no infiltrate. treat with Zosyn now Day #2 IVF w D5 NS (4) UTI (urinary tract infection) Conclusion/Plan: He still has an enterovesical fistula, pt is high risk to have UTI until operation done. treated with zosyn now follow up UA culture and sensitivity study Qualifiers: Urinary tract infection type: site unspecified Hematuria presence: with hematuria Qualified Code(s): N39.0 - Urinary tract infection, site not specified; R31.9 - Hematuria, unspecified; R31.9 - Hematuria, unspecified (5) C. difficile colitis Conclusion/Plan: pt with chronic diarrhea, and D/C three days ago with PO vancomycin for C.Diff colitis which diagnosis at [facility] continue PO vancomycin test C.Diff, and will follow up (6) Malnutrition Conclusion/Plan: malnourished, consult with catering cook TPN today after PICC line placed by Anesthesia (6) Enterovesical fistula Conclusion/Plan: I spoke with Dr. Curtis who is reservations clerk for Dileep Mims MD. He reviewed the admission and while GI did consult on the patient, Gen Surg did not. Dr. Curtis will work on getting the patient back to [facility] in the next two days. In the meantime, bowel rest and TPN. (7) Atrial fibrillation Conclusion/Plan: stable now but does have tachycardia to low 100's at times, resume home meds Amiodarone and Toprol XL Is on tele, will stop. Resume only if rate gets uncontrolled. (8) Hypertension Conclusion/Plan: stable, resume home meds Toprol XL,
[2017-12-15] MEDS: FAT EMULSION 20% 250 ML IV SCH (19:59)
[2017-12-15] MEDS: TPN (CLINIMIX E 5/15) 2,000 ML with MULTIVITAMIN 10 ML IV SCH ×2 (20:00)
[2017-12-16] MEDS: PIPERACILLIN/TAZOBACTAM 3.375 GM in SODIUM CHLORIDE 0.9% MINIBAG 100 ML IV SCH ×4 (01:03→17:27)
[2017-12-16] MEDS: SODIUM CHLORIDE FLUSH 0.9% 10 ML SYRINGE IVP SCH ×3 (03:49→16:24)
[2017-12-16] MEDS: D5NS W/20 MEQ KCL 1,000 ML IV SCH ×3 (04:38→17:19)
[2017-12-16 05:40] LABS: BASOPHILS % (AUTO) 0.9 %; HGB - HEMOGLOBIN 10.8 g/dL (14.0-18.0); LYMPHOCYTES # (AUTO) 0.2 10^3/uL (1.5-3.5); LYMPHOCYTES % (AUTO) 3.4 %; MEAN CORPUSCULAR HGB CONC 33.6 g/dL (32.0-36.0); MEAN PLATELET VOLUME 7.7 fL (7.4-11.4); MONOCYTES # (AUTO) 0.3 10^3/uL (0.0-1.0); MONOCYTES % (AUTO) 6.8 %; NEUTROPHILS # (AUTO) 4.2 10^3/uL (1.5-6.6); NEUTROPHILS % (AUTO) 88.9 %; PLT - PLATELET COUNT 101 10^3/uL (130-450); RED BLOOD COUNT 3.08 10^6/uL (4.70-6.10); RED CELL DISTRIBUTION WIDTH 12.9 % (12.0-15.0); WHITE BLOOD COUNT 4.8 x10^3/uL (4.8-10.8)
[2017-12-16 05:44] LABS: INR 1.4 (0.8-1.2); PT - PROTHROMBIN TIME 15.7 secs (9.9-12.6)
[2017-12-16 05:53] LABS: ALBUMIN 2.2 g/dL (3.2-5.5); ALBUMIN/GLOBULIN RATIO 0.7 (1.0-2.2); BILIRUBIN,TOTAL 0.5 mg/dL (0.2-1.0); CALCIUM 8.1 mg/dL (8.5-10.3); CREATININE 0.8 mg/dL (0.6-1.2); MAGNESIUM 1.6 mg/dL (1.7-2.8); PHOSPHORUS 2.1 mg/dL (2.5-4.6); TOTAL PROTEIN 5.2 g/dL (6.7-8.2)
[2017-12-16] MEDS: ENOXAPARIN 40 MG/0.4 ML SYRINGE SUBQ SCH (08:03)
[2017-12-16] MEDS: POLYETHYLENE GLYCOL 3350 17 GM PACKET PO SCH (08:04)
[2017-12-16] MEDS: METOPROLOL SUCCINATE 50 MG TABLET PO SCH (08:14)
[2017-12-16] MEDS: AMIODARONE 200 MG TABLET PO SCH (08:14)
[2017-12-16] MEDS: VANCOMYCIN 125 MG CAPSULE PO SCH ×4 (08:14→22:32)
[2017-12-16] MEDS: FAMOTIDINE 20 MG TABLET PO SCH (08:14)
--- NOTE | 2017-12-16 09:07 | XRAY Report ---
PORTABLE CHEST: 12/15/2017 HISTORY: For PICC line placement. COMPARISON: 12/14/2017. FINDINGS: There is a right-sided PICC line, the tip of which is curled upon itself in the region of the subclavian vein. Lungs remain clear. Heart size normal. No pleural fluid or pneumothorax. IMPRESSION: RIGHT PICC LINE CURLED UPON ITSELF IN THE REGION OF THE RIGHT SUBCLAVIAN VEIN. THE FLOOR IS AWARE AND THE PICC LINE WILL BE REPOSITIONED. TD: 12/15/2017 15:01
--- NOTE | 2017-12-16 09:29 | XRAY Report ---
EXAM: CHEST RADIOGRAPHY ONE VIEW EXAM DATE: 12/16/2017. CLINICAL HISTORY: Hypoxia. COMPARISON: 12/15/2017 at 1506. TECHNIQUE: AP upright portable chest at 0819. FINDINGS: Lungs/Pleura: Mild distention of the pulmonary vasculature and increased interstitial opacity. Hazy o pacities in the left mid and right lower lung. Small right pleural effusion blunting the costophrenic angle. No pneumothorax. Mediastinum: Normal cardiac and mediastinal contours. Mild aortic atherosclerosis. Left PICC is in pl dong, distal end of the catheter is obscured, probably in the mid to distal superior vena cava. Bones: Degenerative changes of the spine. IMPRESSION: Mild pulmonary vascular congestion consistent with congestive heart failure/fluid overloa d. Hazy opacities in the right lower lung and left midlung; differential includes atelectasis, pneumonia , and asymmetrical edema. Very small right pleural effusion. Left PICC is in place, distal end of the catheter obscured and is probably in the mid to distal super ior vena cava. [facility] Referring Provider Line: [phone] SITE ID: [id number]
[2017-12-16] MEDS: POTASSIUM CHLOR 10 MEQ/100 ML 10 MEQ/100 ML BAG IV SCH ×4 (09:54→20:32)
[2017-12-16] MEDS ORDERED: MAGNESIUM SULFATE 1 GM in SODIUM CHLORIDE 0.9% 50 ML IV ONE (11:06)
[2017-12-16] MEDS ORDERED: POTASSIUM PHOSPHATE 15 MMOL in SODIUM CHLORIDE 0.9% 250 ML IV ONE (11:07)
[2017-12-16] MEDS: SODIUM CHLORIDE FLUSH 0.9% 10 ML SYRINGE IVP PRN (12:30)
--- NOTE | 2017-12-16 18:38 | PROVIDER PROGRESS NOTE ---
Subjective - Prog Note Date Prog Note Date: 12/16/17 Prog Note Time: 18:36 - Subjective Pt reports feeling: No change Subjective: he still shakes with simple exertion of sipping from a cup or lifting his head. he is mad that we don't allow him unlimited drinking but I explained he is gulping his fluids so fast he chokes. He needs to slow down. denies cp, shortness of breath. still weak, exhausted. no rigors, but had fever to 38.4 last night. this am 90% on room air. we had him sit up and cough, better. CXR without change. Current Medications - Current Medications Current Medications: Active Medications Acetaminophen (Tylenol) 650 mg PO Q4HR PRN PRN Reason: Pain 1 to 4 Last Admin: 12/15/17 22:13 Dose: 650 mg Amiodarone HCl (Pacerone) 200 mg PO DAILY [facility] Last Admin: 12/16/17 08:14 Dose: 200 mg Enoxaparin Sodium (Lovenox) 30 mg SUBQ DAILY [facility] Last Admin: 12/16/17 08:03 Dose: Not Given Famotidine (Pepcid) 20 mg PO DAILY [facility] Last Admin: 12/16/17 08:14 Dose: 20 mg Piperacillin Sod/Tazobactam (Sod 3.375 gm/ Sodium Chloride) 100 mls @ 200 mls/ hr IV Q6H [facility] Last Infusion: 12/16/17 17:57 Dose: Infused Potassium Chloride/Dextrose/Sod Cl () 1,000 mls @ 100 mls/hr IV .Q10H [facility] Last Admin: 12/16/17 17:19 Dose: 100 mls/hr Multivitamins 10 ml/ Amino Ac/ (Electrol/Dextrose/Calcium) 2,010 mls @ 40 mls/ hr IV Q24H [facility] PRN Reason: Protocol Last Admin: 12/15/17 20:00 Dose: 40 mls/hr Fat Emulsion Intravenous (Intralipid 20%) 250 mls @ 21 mls/hr IV Q24H [facility] Last Infusion: 12/16/17 07:54 Dose: Infused Potassium Chloride (Potassium Chloride) 10 meq in 100 mls @ 100 mls/hr IV Q1H [facility] Stop: 12/16/17 19:59 Last Admin: 12/16/17 18:00 Dose: 100 mls/hr Metoprolol Succinate (Toprol Xl) 50 mg PO DAILY [facility] Last Admin: 12/16/17 08:14 Dose: 50 mg Ondansetron HCl (Zofran Inj) 4 mg IVP Q6HR PRN PRN Reason: Nausea / Vomiting Polyethylene Glycol (Miralax) 17 gm PO DAILY [facility] Last Admin: 12/16/17 08:04 Dose: Not Given Sodium Chloride (Normal Saline Flush 0.9%) 10 ml IVP PRN PRN PRN Reason: NEEDED PER PROVIDER ORDERS Last Admin: 12/16/17 12:30 Dose: 10 ml Sodium Chloride (Normal Saline Flush 0.9%) 10 ml IVP 0100,0900,1700 [facility] Last Admin: 12/16/17 16:24 Dose: Not Given Vancomycin HCl (Vancocin) 125 mg PO QID [facility] Last Admin: 12/16/17 17:19 Dose: 125 mg Zolpidem Tartrate (Ambien) 5 mg PO QPM PRN PRN Reason: Insomnia Felodipine [Felodipine ER] 10 mg PO DAILY 10/25/14 Metoprolol Succinate [Toprol Xl] 50 mg PO DAILY 04/12/15 Amiodarone HCl [Amiodarone HCl] 200 mg PO DAILY 12/14/17 Losartan Potassium [Losartan Potassium] 50 mg PO DAILY 12/14/17 Vancomycin HCl [Vancomycin HCl] 125 mg PO QID 12/14/17 Objective - Vital Signs/Intake & Output Reviewed Vital Signs: Yes Vital Signs: Vital Signs x48h Temp Pulse Pulse Resp BP BP Pulse Ox 12/16/17 16:13 37.0 C 99 16 151/63 H 92 12/16/17 14:15 78 123/63 12/16/17 13:55 37.8 C H 88 20 130/56 L 98 Intake & Output: Intake & Output 12/13/17 12/14/17 12/15/17 12/16/17 23:59 23:59 23:59 23:59 Intake Total 190.408 3712.666 3543.667 Output Total 2150 2375 2900 Balance -1311.666 778.666 643.667 - Objective General Appearance: positive: No acute distress, Alert, Other (severely cachectic, weak) Eyes Bilateral: positive: PERRL, EOMI ENT: positive: Other (poor poor dentition) Respiratory: positive: No respiratory distress. negative: Wheezes, Rales, Rhonchi Cardiovascular: positive: Regular rate & rhythm, Systolic murmur. negative: Gallop/S4, Friction rub Abdomen: positive: Non-tender, Nml bowel sounds, No distention, Other (scaphoid and has murry draining brown urine) Extremities: positive: Full ROM, Pedal edema (nonpitting) Neurologic/Psychiatric: positive: Oriented x3, CN's nml (2-12), Motor nml (but severely diffusely weak. barely able to work w PT) - Lab Results Fish Bones: 12/16/17 05:15 12/16/17 05:15 Other Labs: Lab Results x24hrs 12/16/17 12/16/17 12/16/17 Range/Units 05:15 05:15 05:15 WBC 4.8 (4.8-10.8) x10^3/uL RBC 3.08 L (4.70-6.10) 10^6/uL Hgb 10.8 L (14.0-18.0) g/dL Hct 32.0 L (42.0-52.0) % MCV 104.0 H (80.0-94.0) fL MCH 35.0 H (27.0-31.0) pg MCHC 33.6 (32.0-36.0) g/dL RDW 12.9 (12.0-15.0) % Plt Count 101 L (130-450) 10^3/uL MPV 7.7 (7.4-11.4) fL Neut # 4.2 (1.5-6.6) 10^3/uL Lymph # 0.2 L (1.5-3.5) 10^3/uL [place] # 0.3 (0.0-1.0) 10^3/uL Eos # 0.0 (0.0-0.7) 10^3/uL Baso # 0.0 (0.0-0.1) 10^3/uL Absolute Nucleated RBC 0.00 x10^3/uL Nucleated RBC % 0.0 /100WBC PT 15.7 H (9.9-12.6) secs INR 1.4 H (0.8-1.2) Sodium 140 (135-145) mmol/L Potassium 3.2 L (3.5-5.0) mmol/L Chloride 115 H (101-111) mmol/L Carbon Dioxide 18 L (21-32) mmol/L Anion Gap 7.0 (6-13) BUN 10 (6-20) mg/dL Creatinine 0.8 (0.6-1.2) mg/dL Estimated GFR (MDRD) 96 (>89) Glucose 162 H (70-100) mg/dL Calcium 8.1 L (8.5-10.3) mg/dL Phosphorus 2.1 L (2.5-4.6) mg/dL Magnesium 1.6 L (1.7-2.8) mg/dL Total Bilirubin 0.5 (0.2-1.0) mg/dL AST 16 (10-42) IU/L ALT 10 (10-60) IU/L Alkaline Phosphatase 47 (42-121) IU/L Total Protein 5.2 L (6.7-8.2) g/dL Albumin 2.2 L (3.2-5.5) g/dL Globulin 3.0 (2.1-4.2) g/dL Albumin/Globulin Ratio 0.7 L (1.0-2.2) Prealbumin 7 L (18-45) mg/dL Triglycerides 103 ( - 149) mg/dL Assessment/Plan - Problem List (1) Gram-negative bacteremia Impression: seen on 3/4 blood cultures. Source is either fistula or UTI. He has blood cultures (+) for proteus and E coli, urine cultures (+) for E coli On Zosyn Day #3. No change in abx. (2) Generalized weakness Impression: most likely from severely being malnourished , bacteremic and w chronic fistula plus C dif colitis. pt's BMI 19.3 consult staff respiratory therapist TPN started. He has hypomagnesemia and hypophosphatemia and we are supplementing those before increaing IV rate. Nutrition consult worried about refeeding syndrome PT/OT ordered and he refused first try and did work w them second try. (3) Fever Conclusion/Plan: pt report he had fever Tem 38.3 degree That is still a problem w temp spike last night. continue to monitor as an indication of whether zosyn alone is working or not. CXR was done since pt had cough and congestion. there was no infiltrate. treat with Zosyn now Day #3 (4) UTI (urinary tract infection) Conclusion/Plan: He still has an enterovesical fistula, pt is high risk to have recurrent UTI until operation done. treated with zosyn now Qualifiers: Urinary tract infection type: site unspecified Hematuria presence: with hematuria Qualified Code(s): N39.0 - Urinary tract infection, site not specified; R31.9 - Hematuria, unspecified; R31.9 - Hematuria, unspecified (5) C. difficile colitis Conclusion/Plan: pt with chronic diarrhea, and D/C three days ago with PO vancomycin for C.Diff colitis which diagnosis at [facility] continue PO vancomycin C dig here on 12/14/17 was negative. (6) Malnutrition Conclusion/Plan: malnourished, consulted with staff respiratory therapist and TPN started on 12/15 after PICC line placed by Anesthesia (6) Enterovesical fistula Conclusion/Plan: I spoke with Dr. Curtis 12/15 who is sustainable design consultant for Dileep Mims MD. He reviewed the admission and while GI did consult on the patient, Gen Surg did not. Dr. Curtis will work on getting the patient back to [facility]. In the meantime, bowel rest and TPN. The surgical PA dalled today, Greg Lentz and they still don 't have beds and will continue to work on getting him over to [facility]. They do want ECHO before surgery. They had also wanted a Holter for a week to see how frequent the afib was. (7) Atrial fibrillation Conclusion/Plan: stable now but does have tachycardia to low 100's at times, resumed on home meds Amiodarone and Toprol XL I will stop the amiodarone and stay only on toprol on the basis of the [facility] notes. Sinus tach and sinus rhythm on tele while here. No afib yet. In reading Dr. Ventura's notes (Cardiology) he states on 11/24/17 "Persistent atrial fibrillation. Patient had atrial fibrillation after surgery approximately 2 years ago and has had rhythm control with amiodarone. He stopped amiodarone 2 weeks ago on suggestion of his surgeon, Dr. Montelongo. We will need to assess current heart function to rule out any further structural causes for the persistent A. fib. Patient describes palpitations that occur multiple times a week and will need a heart monitor for further evaluation. Plan: Echo to assess LV function and structure Ziehl monitor 1 week to assess his palpitations at night No amiodarone for now but patient may have recurrence of A. fib if he has another surgery. Patient also has amiodarone related tremor. Stop atenolol Continue metoprolol XL 50 mg a day and uptitrate if heart rate increases significantly with stopping of atenolol." (8) Hypertension Conclusion/Plan: stable, resume home meds Toprol XL,
[2017-12-16] MEDS: TPN (CLINIMIX E 5/15) 2,000 ML with MULTIVITAMIN 10 ML IV SCH ×2 (20:25)
[2017-12-16] MEDS: FAT EMULSION 20% 250 ML IV SCH (20:25)
[2017-12-17] MEDS: PIPERACILLIN/TAZOBACTAM 3.375 GM in SODIUM CHLORIDE 0.9% MINIBAG 100 ML IV SCH ×3 (00:10→13:50)
[2017-12-17] MEDS: SODIUM CHLORIDE FLUSH 0.9% 10 ML SYRINGE IVP SCH ×3 (01:12→16:03)
[2017-12-17] MEDS ORDERED: SODIUM CHLORIDE FLUSH 0.9% 10 ML SYRINGE IVP PRN (01:13)
[2017-12-17] MEDS: D5NS W/20 MEQ KCL 1,000 ML IV SCH (04:01)
[2017-12-17] MEDS: SODIUM CHLORIDE FLUSH 0.9% 10 ML SYRINGE IVP PRN (05:57)
[2017-12-17 06:09] LABS: BASOPHILS % (AUTO) 0.5 %; EOSINOPHILS % (AUTO) 0.4 %; HGB - HEMOGLOBIN 9.9 g/dL (14.0-18.0); LYMPHOCYTES # (AUTO) 0.3 10^3/uL (1.5-3.5); LYMPHOCYTES % (AUTO) 5.3 %; MEAN CORPUSCULAR HEMOGLOBIN 34.4 pg (27.0-31.0); MEAN CORPUSCULAR HGB CONC 33.2 g/dL (32.0-36.0); MEAN CORPUSCULAR VOLUME 103.6 fL (80.0-94.0); MEAN PLATELET VOLUME 8.1 fL (7.4-11.4); MONOCYTES # (AUTO) 0.4 10^3/uL (0.0-1.0); MONOCYTES % (AUTO) 8.6 %; NEUTROPHILS # (AUTO) 4.1 10^3/uL (1.5-6.6); NEUTROPHILS % (AUTO) 85.2 %; PLT - PLATELET COUNT 90 10^3/uL (130-450); RED BLOOD COUNT 2.88 10^6/uL (4.70-6.10); WHITE BLOOD COUNT 4.8 x10^3/uL (4.8-10.8)
[2017-12-17 06:20] LABS: ALBUMIN/GLOBULIN RATIO 0.7 (1.0-2.2); BILIRUBIN,TOTAL 0.4 mg/dL (0.2-1.0); CALCIUM 7.8 mg/dL (8.5-10.3); CREATININE 0.6 mg/dL (0.6-1.2)
[2017-12-17] MEDS: diazePAM 5 MG TABLET PO PRN ×2 (07:50→16:02)
[2017-12-17] MEDS: POLYETHYLENE GLYCOL 3350 17 GM PACKET PO SCH (10:33)
[2017-12-17] MEDS: METOPROLOL SUCCINATE 50 MG TABLET PO SCH (10:35)
[2017-12-17] MEDS: FAMOTIDINE 20 MG TABLET PO SCH (10:36)
[2017-12-17] MEDS: VANCOMYCIN 125 MG CAPSULE PO SCH ×3 (10:36→16:02)
[2017-12-17] MEDS ORDERED: CALCIUM GLUCONATE 1,000 MG in SODIUM CHLORIDE 0.9% 50 ML IV ONE (11:15)
--- NOTE | 2017-12-17 15:07 | PROVIDER PROGRESS NOTE ---
Subjective - Prog Note Date Prog Note Date: 12/17/17 - Subjective Pt reports feeling: Improved Subjective: pt state he feel better, and he actually walked 50 feet today morning. pt present some shaking/tremor on both his hands. Pt state he has tremor for long time. pt state Diazepam can control his shaking. I called Marguerite at [facility] nurse supervisor cooler service told me they will have a bed available for pt today. But so far there is no bed available yet Current Medications - Current Medications Current Medications: Active Medications Acetaminophen (Tylenol) 650 mg PO Q4HR PRN PRN Reason: Pain 1 to 4 Last Admin: 12/17/17 16:02 Dose: 650 mg Diazepam (Valium) 2.5 mg PO Q6HR PRN PRN Reason: Anxiety Last Admin: 12/17/17 16:02 Dose: 2.5 mg Enoxaparin Sodium (Lovenox) 30 mg SUBQ DAILY [facility] Famotidine (Pepcid) 20 mg PO DAILY [facility] Last Admin: 12/17/17 10:36 Dose: 20 mg Piperacillin Sod/Tazobactam (Sod 3.375 gm/ Sodium Chloride) 100 mls @ 200 mls/ hr IV Q6H [facility] Last Infusion: 12/17/17 14:52 Dose: Infused Multivitamins 10 ml/ Amino Ac/ (Electrol/Dextrose/Calcium) 2,010 mls @ 40 mls/ hr IV Q24H PJ PRN Reason: Protocol Last Admin: 12/16/17 20:25 Dose: 40 mls/hr Fat Emulsion Intravenous (Intralipid 20%) 250 mls @ 21 mls/hr IV Q24H [facility] Last Infusion: 12/17/17 08:40 Dose: Infused Potassium Chloride/Dextrose/Sod Cl () 1,000 mls @ 75 mls/hr IV .[id number] [facility] Last Admin: 12/17/17 16:03 Dose: 75 mls/hr Metoprolol Succinate (Toprol Xl) 50 mg PO DAILY [facility] Last Admin: 12/17/17 10:35 Dose: 50 mg Ondansetron HCl (Zofran Inj) 4 mg IVP Q6HR PRN PRN Reason: Nausea / Vomiting Polyethylene Glycol (Miralax) 17 gm PO DAILY [facility] Last Admin: 12/17/17 10:33 Dose: Not Given Sodium Chloride (Normal Saline Flush 0.9%) 10 ml IVP PRN PRN PRN Reason: NEEDED PER PROVIDER ORDERS Last Admin: 12/17/17 05:57 Dose: 10 ml Sodium Chloride (Normal Saline Flush 0.9%) 10 ml IVP 0100,0900,1700 [facility] Last Admin: 12/17/17 16:03 Dose: 10 ml Sodium Chloride (Normal Saline Flush 0.9%) 20 ml IVP PRN PRN PRN Reason: After Blood Draw Last Admin: 12/17/17 05:56 Dose: 20 ml Vancomycin HCl (Vancocin) 125 mg PO QID [facility] Last Admin: 12/17/17 16:02 Dose: 125 mg Zolpidem Tartrate (Ambien) 5 mg PO QPM PRN PRN Reason: Insomnia Felodipine [Felodipine ER] 10 mg PO DAILY 10/25/14 Metoprolol Succinate [Toprol Xl] 50 mg PO DAILY 04/12/15 Amiodarone HCl [Amiodarone HCl] 200 mg PO DAILY 12/14/17 Losartan Potassium [Losartan Potassium] 50 mg PO DAILY 12/14/17 Vancomycin HCl [Vancomycin HCl] 125 mg PO QID 12/14/17 Objective - Vital Signs/Intake & Output Reviewed Vital Signs: Yes Vital Signs: Vital Signs x48h Temp Pulse Resp BP Pulse Ox 12/17/17 12:30 37.1 C 91 20 138/86 H 93 12/17/17 08:25 36.8 C 92 22 134/59 H 93 Intake & Output: Intake & Output 12/14/17 12/15/17 12/16/17 12/17/17 23:59 23:59 23:59 23:59 Intake Total 911.102 4684.666 4703.667 1768.334 Output Total 2150 2375 3700 1950 Balance -1311.666 436.463 5390.667 -181.666 - Objective General Appearance: positive: No acute distress, Alert. negative: Lethargic Eyes Bilateral: positive: Normal inspection, PERRL, No lid inflammation, Conjunctivae nml ENT: positive: ENT inspection nml, Pharynx nml, No signs of dehydration. negative: Purulent nasal drainage, Pharyngeal erythema, Oral lesions Neck: positive: Nml inspection, Thyroid nml, No JVD, Trachea midline. negative : Thyromegaly, Lymphadenopathy (R), Lymphadenopathy (L), Stiff neck, Carotid bruit, Swelling/bruising, Tracheal deviation Respiratory: positive: Chest non-tender, No respiratory distress, Breath sounds nml. negative: Wheezes, Rales, Rhonchi Cardiovascular: positive: Regular rate & rhythm, No murmur, No gallop. negative : Irregularly irregular, Extrasystoles, Tachycardia, Bradycardia, Systolic murmur, Diastolic murmur Peripheral Pulses: 2+ Radial (R), 2+ Radial (L), 2+ Dorsalis pedis (R), 2+ Dorsalis pedis (L) Abdomen: positive: Non-tender, No organomegaly, Nml bowel sounds, No distention. negative: Tenderness, Guarding, Rebound Back: positive: Nml inspection. negative: CVA tenderness (R), CVA tenderness (L ) Skin: positive: Color nml, No rash, Warm, Dry. negative: Diaphoresis, Pallor Extremities: positive: Non-tender, Full ROM, Nml appearance. negative: Calf tenderness, Joint swelling, Christa's sign/cords Neurologic/Psychiatric: positive: Motor nml, Sensation nml, Weakness. negative : Sensory loss, Facial droop, Slurred/abnml speech, Depressed mood/affect - Lab Results Fish Bones: 12/17/17 06:01 12/17/17 06:01 Other Labs: Lab Results x24hrs 12/17/17 12/17/17 Range/Units 06:01 06:01 WBC 4.8 (4.8-10.8) x10^3/uL RBC 2.88 L (4.70-6.10) 10^6/uL Hgb 9.9 L (14.0-18.0) g/dL Hct 29.8 L (42.0-52.0) % MCV 103.6 H (80.0-94.0) fL MCH 34.4 H (27.0-31.0) pg MCHC 33.2 (32.0-36.0) g/dL RDW 13.0 (12.0-15.0) % Plt Count 90 L (130-450) 10^3/uL MPV 8.1 (7.4-11.4) fL Neut # 4.1 (1.5-6.6) 10^3/uL Lymph # 0.3 L (1.5-3.5) 10^3/uL Smith # 0.4 (0.0-1.0) 10^3/uL Eos # 0.0 (0.0-0.7) 10^3/uL Baso # 0.0 (0.0-0.1) 10^3/uL Absolute Nucleated RBC 0.01 x10^3/uL Nucleated RBC % 0.2 /100WBC Sodium 137 (135-145) mmol/L Potassium 3.5 (3.5-5.0) mmol/L Chloride 111 (101-111) mmol/L Carbon Dioxide 19 L (21-32) mmol/L Anion Gap 7.0 (6-13) BUN 8 (6-20) mg/dL Creatinine 0.6 (0.6-1.2) mg/dL Estimated GFR (MDRD) 134 (>89) Glucose 189 H (70-100) mg/dL Calcium 7.8 L (8.5-10.3) mg/dL Total Bilirubin 0.4 (0.2-1.0) mg/dL AST 18 (10-42) IU/L ALT 13 (10-60) IU/L Alkaline Phosphatase 44 (42-121) IU/L Total Protein 5.0 L (6.7-8.2) g/dL Albumin 2.0 L (3.2-5.5) g/dL Globulin 3.0 (2.1-4.2) g/dL Albumin/Globulin Ratio 0.7 L (1.0-2.2) Assessment/Plan - Problem List (1) Generalized weakness Impression: (1) Gram-negative bacteremia Impression: Zosyn is sensitive in both blood culture and UA study continue Zosyn daily lab and vital monitor seen on 3/4 blood cultures. Source is either fistula or UTI. He has blood cultures (+) for proteus and E coli, urine cultures (+) for E coli On Zosyn Day #3. No change in abx. (2) Generalized weakness Impression: continue PT/OT most likely from severely being malnourished , bacteremic and w chronic fistula plus C dif colitis. pt's BMI 19.3 consult power shovel operator helper TPN started. He has hypomagnesemia and hypophosphatemia and we are supplementing those before increaing IV rate. Nutrition consult worried about refeeding syndrome PT/OT ordered and he refused first try and did work w them second try. (3) Fever Conclusion/Plan: Pt has temperature to 37.9, pt denies cough or congestion today, CXR reveals no infiltrate on yesterday continue Zosyn pt report he had fever Tem 38.3 degree That is still a problem w temp spike last night. continue to monitor as an indication of whether zosyn alone is working or not. CXR was done since pt had cough and congestion. there was no infiltrate. treat with Zosyn now Day #3 (4) UTI (urinary tract infection) Conclusion/Plan: He still has an enterovesical fistula, pt is high risk to have recurrent UTI until operation done. treated with zosyn now (5) C. difficile colitis Conclusion/Plan: pt with chronic diarrhea, and D/C three days ago with PO vancomycin for C.Diff colitis which diagnosis at [facility] continue PO vancomycin C dig here on 12/14/17 was negative. (6) Malnutrition Conclusion/Plan: D5 NS 20 meq KCL is 75 cc/h, since pt has slight elevated sugar level in the blood. malnourished, consulted with power shovel operator helper and TPN started on 12/15 after PICC line placed by Anesthesia (6) Enterovesical fistula Conclusion/Plan: will continue call [facility] for a bed. Pt was accepted by pt's previous surgeon and this hospital for advance care. I spoke with Dr. Curtis 12/15 who is x ray consultant for Dileep Mims MD. He reviewed the admission and while GI did consult on the patient, Gen Surg did not. Dr. Curtis will work on getting the patient back to [facility]. In the meantime, bowel rest and TPN. The surgical PA dalled today, Greg Lentz and they still don 't have beds and will continue to work on getting him over to [facility]. They do want ECHO before surgery. They had also wanted a Holter for a week to see how frequent the afib was. (7) Atrial fibrillation Conclusion/Plan: pt does not present Afib, per recommendation, d/c amiodarone, keep Toprol XL continue tele, vital monitor stable now but does have tachycardia to low 100's at times, resumed on home meds Amiodarone and Toprol XL I will stop the amiodarone and stay only on toprol on the basis of the [place] notes. Sinus tach and sinus rhythm on tele while here. No afib yet. In reading Dr. Ventura's notes (Cardiology) he states on 11/24/17 "Persistent atrial fibrillation. Patient had atrial fibrillation after surgery approximately 2 years ago and has had rhythm control with amiodarone. He stopped amiodarone 2 weeks ago on suggestion of his surgeon, Dr. Montelongo. We will need to assess current heart function to rule out any further structural causes for the persistent A. fib. Patient describes palpitations that occur multiple times a week and will need a heart monitor for further evaluation. Plan: Echo to assess LV function and structure Ziehl monitor 1 week to assess his palpitations at night No amiodarone for now but patient may have recurrence of A. fib if he has another surgery. Patient also has amiodarone related tremor. Stop atenolol Continue metoprolol XL 50 mg a day and uptitrate if heart rate increases significantly with stopping of atenolol." (8) Hypertension Conclusion/Plan: stable, resume home meds Toprol XL, (3) UTI (urinary tract infection) Qualifiers: Urinary tract infection type: site unspecified Hematuria presence: with hematuria Qualified Code(s): N39.0 - Urinary tract infection, site not specified; R31.9 - Hematuria, unspecified; R31.9 - Hematuria, unspecified
[2017-12-17 15:35] VITALS: BP 126/67
[2017-12-17] MEDS ORDERED: D5NS W/20 MEQ KCL 1,000 ML IV SCH (15:43)
[2017-12-17] MEDS: ACETAMINOPHEN 325 MG TABLET PO PRN (16:02)
--- NOTE | 2017-12-17 17:01 | DISCHARGE SUMMARY ---
Discharge Summary Discharge Date: 12/17/17 Discharging Provider: MYRICK Primary Care Provider: Cassie Alvarado Code Status: Do Not Attempt Resuscitation Condition at Discharge: Serious Discharge Disposition: 02 Transfer [place] [facility] [place] [place] Admission Diagnoses: (1) Generalized weakness (2) Fever (3) UTI (urinary tract infection) (4) C. difficile colitis (5) Malnutrition (6) Enterovesical fistula (7) Atrial fibrillation (8) Hypertension Discharge Diagnoses with Status of Each Condition: (1) Gram-negative bacteremia pt is on Zosyn now, will be further managed by [facility] (2) Generalized weakness Pt walk 50 feet today morning, great improved. will be further managed by [facility] (3) Fever controlled. today he had 37.9 degree, will be further managed by [facility] (4) UTI (urinary tract infection) on zosyn, will be further managed by [facility] (5) C. difficile colitis on vancomyinc PO (6) Malnutrition on TPN (6) Enterovesical fistula transfer to [facility] for advance care, and surgery (7) Atrial fibrillation controlled, on Toprol XL (8) Hypertension stable. - HPI History of Present Illness: Mr. Eckert is 67-year-old male with a PMH significant for HTN, recurrent UTI, Afib in Amiodarone, C.Diff colitis on PO Vancomycin, colostomy, enterovesicular fistula, who present ER complaints of fever and profound weakness. Pt was discharged from [facility] three days ago with PO Vancomycin for C.Diff colitis. In 2014, pt underwent a colonic resection and descending colostomy ( [place]) for perforated diverticulitis. Three months later pt developed SBO and underwent Laparoscopy which revealed small bowel vulvous. CT scan on 2017 shows left dome enterovesical fistula, biopsies showed negative for Crohn' s disease. Pt has seen Dr. Mims as out-pt and planned to attempt surgery for the fistula. The surgeon was unable to proceed with surgery due to pt's nutritional decline at that time. Pt's son call 911 today for pt's fever and profound weakness. Pt state he can walk yesterday but he can not do anything today. Pt report he did have stool passed through his colostomy bag today and felt some abdominal pain as well. Pt denies chest pain, shortness of breath, headache. Lab test today shows, WBC 12.2, Na 132, BUN 24, Creatinine 1.2, and UA reveals UTI. - HOSPITAL COURSE Hospital Course: pt was admitted in this hospital for fever, and profound weakness. Pt was found to have UTI. Later pt was found bacteremia. Pt still has enterovesicular fistula now, which most likely cause his UTI and bacteremia. Pt was also found severe malnutrition. Pt was treated with Zosyn for infection. Sensitivity study show zosyn is sensitive the bacteria. Pt was prescribed TPN as well. Dr. Martínez called Dr. Curtis on 12/15/17. pt was accepted by Dr. Curtis. Pt is transfer to [facility] [place] for advance care today. - ALLERGIES Allergies/Adverse Reactions: Allergies Allergy/AdvReac Type Severity Reaction Status Date / Time erythromycin base Allergy Intermediate Rash Verified 12/14/17 10:56 - MEDICATIONS Home Medications: Ambulatory Orders Medication Instructions Recorded Confirmed Felodipine [Felodipine ER] 10 mg PO DAILY 10/25/14 12/14/17 Metoprolol Succinate [Toprol Xl] 50 mg PO DAILY 04/12/15 12/14/17 Amiodarone HCl [Amiodarone HCl] 200 mg PO DAILY 12/14/17 12/14/17 Losartan Potassium [Losartan 50 mg PO DAILY 12/14/17 12/14/17 Potassium] Vancomycin HCl [Vancomycin HCl] 125 mg PO QID 12/14/17 12/14/17 - PHYSICAL EXAM AT DISCHARGE General Appearance: positive: Alert, Mild distress. negative: Lethargic Eyes Bilateral: positive: PERRL, No lid inflammation, Conjunctivae nml ENT: positive: ENT inspection nml, Pharynx nml, No signs of dehydration. negative: Purulent nasal drainage, Pharyngeal erythema, Oral lesions Neck: positive: Nml inspection, Thyroid nml, No JVD, Trachea midline. negative : Thyromegaly, Lymphadenopathy (R), Lymphadenopathy (L), Stiff neck, Carotid bruit, Swelling/bruising, Tracheal deviation Respiratory: positive: Chest non-tender, No respiratory distress, Breath sounds nml. negative: Wheezes, Rales, Rhonchi Cardiovascular: positive: Regular rate & rhythm, No murmur, No gallop. negative : Irregularly irregular, Extrasystoles, Tachycardia, Bradycardia, Systolic murmur, Diastolic murmur Peripheral Pulses: positive: 2+ Abdomen: positive: Non-tender, No organomegaly, Nml bowel sounds, No distention. negative: Tenderness, Guarding, Rebound Back: positive: Nml inspection. negative: CVA tenderness (R), CVA tenderness (L ) Skin: positive: Color nml, No rash, Warm, Dry. negative: Cyanosis, Diaphoresis , Pallor Extremities: positive: Non-tender, Full ROM, Nml appearance. negative: Calf tenderness, Joint swelling, Christa's sign/cords Neurologic/Psychiatric: positive: Sensation nml, Weakness. negative: Sensory loss, Facial droop, Slurred/abnml speech, Depressed mood/affect - LABS Result Diagrams: 12/17/17 06:01 12/17/17 06:01 - FOLLOW UP Follow [place] [facility] [place] - TIME SPENT Time Spent in Discharge (Minutes): 60
[2017-12-18] MEDS ORDERED: ENOXAPARIN 30 MG/0.3 ML SYRINGE SUBQ SCH (09:00)
== END 2017-12-17 17:48 | disposition short-term general hospital (02) | DRG 689 ==
LOC: EDUNIT# → ED 10:48 → MS2 17:21
PROVIDERS: ADMIT Nurse Practitioner Gerontology; ATTEND Nurse Practitioner Gerontology
PROC: 3E0436Z Introduction of Nutritional Substance into Central Vein, Percutaneous Approach (ICD-10-PCS; principal; 2017-12-15)
PROC: 02HV33Z Insertion of Infusion Device into Superior Vena Cava, Percutaneous Approach (ICD-10-PCS; 2017-12-15)
DX: N39.0 Urinary tract infection, site not specified (principal); E86.0 Dehydration; E43 Unspecified severe protein-calorie malnutrition; A04.72 Enterocolitis due to Clostridium difficile, not specified as recurrent; E46 Unspecified protein-calorie malnutrition; N32.1 Vesicointestinal fistula; I48.91 Unspecified atrial fibrillation; F17.200 Nicotine dependence, unspecified, uncomplicated; Z87.19 Personal history of other diseases of the digestive system; R78.81 Bacteremia; Z68.1 Body mass index [BMI] 19.9 or less, adult; I48.1 Persistent atrial fibrillation; B96.20 Unspecified Escherichia coli [E. coli] as the cause of diseases classified elsewhere; B96.4 Proteus (mirabilis) (morganii) as the cause of diseases classified elsewhere; R31.9 Hematuria, unspecified; E83.42 Hypomagnesemia; E83.39 Other disorders of phosphorus metabolism; I10 Essential (primary) hypertension; N40.0 Benign prostatic hyperplasia without lower urinary tract symptoms; Z66 Do not resuscitate; Z93.3 Colostomy status; Z90.49 Acquired absence of other specified parts of digestive tract
CPT/HCPCS: 36415; 51702; 71045; 74177; 80053; 81001; 81003; 83605; 83690; 83735; 84100; 84134; 84478; 85025; 85610; 87040; 87077; 87086; 87493; 93005; 96361; 96365; 99283; 99284

== ENCOUNTER 2017-12-17 17:26 | Outpatient (CLI) | payer MEDICARE, OTHER | END 2017-12-17 17:27 | disposition short-term general hospital (02) | LOC: EMS 17:26 | PROVIDERS: ATTEND Surgery | DX: N32.1 Vesicointestinal fistula (principal); N39.0 Urinary tract infection, site not specified; R78.81 Bacteremia; E46 Unspecified protein-calorie malnutrition | CPT/HCPCS: A0425; A0426 ==